=== PATIENT | male | born 1945 | race Caucasian/White ===

== ENCOUNTER 2017-11-04 21:10 | Emergency (ER) | payer MEDICARE, OTHER ==
--- NOTE | 2017-11-09 09:45 | EDM.PDOC ---
ED HPI GENERAL MEDICAL PROBLEM - General Chief Complaint: CPR in Progress Stated Complaint: CARDIAC ARREST Time Seen by Provider: 11/04/17 21:10 Source of Information: Reports: EMS, EMS Notes Reviewed History Limitations: Reports: Other (Unresponsive) - History of Present Illness INITIAL COMMENTS - FREE TEXT/NARRATIVE: Patient is a 72-year-old gentleman that was brought to the emergency department via EMS after being found unresponsive by his at their house. Per EMS, they arrived at the home approximately 2044 and found the patient unresponsive, not breathing, without a palpable pulse, and asystole on monitor. stated that her took a shower at 1730 and the last time she spoke to him was at 1800 while he was sitting on a recliner watching TV. She tried to wake him at 2030 for dinner but he was unresponsive. At that point she called 911. Blueprint Clerk at the scene asked if she wanted them to perform CPR, and asked to please do everything you can. At that time the Homar chest compression device was applied, one round of epinephrine was administered, and patient was ventilated via Ambu bag till he arrived in the emergency department. When patient presented to the emergency department, Homar was in placed doing appropriate chest compressions. Patient was intubated with a 7.5 ET tube and breath sounds were assessed to be bilateral. Homar device was temporarily paused, and pulses were assessed. No palpable pulses were appreciated. Rhythm was asystole on monitor. Due to the nature of the patient' s condition and an indeterminate time of actual cardiac activity, Code was called at 2121, and patient was pronounced. Patient's and family members were in the waiting room, and I discussed with them the unfortunate circumstances that had occurred and the inability to revive him. - Related Data Allergies Allergy/AdvReac Type Severity Reaction Status Date / Time Unable to Assess Allergy Unverified 11/05/17 07:43 Home Meds: Home Meds . [Unable to Verify Home Med List] 11/05/17 [History] ED ROS GENERAL - Review of Systems Review Of Systems: ROS reveals no pertinent complaints other than HPI. ED EXAM, GENERAL - Physical Exam Exam: See Below Exam Limited By: Other (CODE STATUS) General Appearance: Obtunded Eye Exam: Bilateral Eye: Abnormal EOM (Fixed) Throat/Mouth: Normal Inspection, Normal Oropharynx, No Airway Compromise Respiratory/Chest: Other (No spontaneous breathing) Cardiovascular: Other (No cardiac activity) Neurological: Other (Obtunded) Departure - Departure Time of Disposition: 21:25 Disposition: 20 Preliminary Cause of *Q: Cardiac Arrest Clinical Impression: Cardiac arrest Referrals: PCP,Not In Area [Primary Care Provider] - Forms: ED Department Discharge
== END 2017-11-04 21:22 | disposition expired ==
LOC: KA.ED 21:10
DX: I46.9 Cardiac arrest, cause unspecified (principal)
CPT/HCPCS: 99285